=== PATIENT | male | born 1955 | race Caucasian/White ===

== ENCOUNTER 2019-01-30 11:33 | Day surgery (SDC) | payer OTHER ==
[2019-01-30] MEDS ORDERED: LIDOCAINE 2% (SDV) 5 ML INJ (12:31)
[2019-01-30] MEDS ORDERED: PROPOFOL 40 ML (12:31)
== END 2019-01-30 14:21 | disposition home or self-care (01) ==
LOC: GIL 11:33
DX: K21.9 Gastro-esophageal reflux disease without esophagitis (principal); K29.50 Unspecified chronic gastritis without bleeding; B96.89 Other specified bacterial agents as the cause of diseases classified elsewhere; K44.9 Diaphragmatic hernia without obstruction or gangrene; E78.5 Hyperlipidemia, unspecified; I10 Essential (primary) hypertension
CPT/HCPCS: 43239; 88305; 88312